=== PATIENT | male | born 1980 | race Two or more races ===

== ENCOUNTER 2018-06-20 21:03 | Emergency (ER) | payer SELFPAY ==
[~2018-06-20] VITALS: Ht 175.3 cm; Wt 86.2 kg
--- NOTE | 2018-06-20 21:20 | NUR ---
AFTER BEING TRIAGED PATIENT REFUSED TO BE SEEN BY ERMD. STATING "I CHANGE MY MIND. I DON'T WANT TO BE SEEN ANYMORE." PATIENT LEFT WITHOUT BEING SEEN BY ERMD
== END 2018-06-20 21:30 | disposition left against medical advice (07) ==
LOC: ER 21:13
DX: Z53.21 Procedure and treatment not carried out due to patient leaving prior to being seen by health care provider (principal)
CPT/HCPCS: A4663